=== PATIENT | male | born 1990 | race Caucasian/White ===

== ENCOUNTER 2019-05-29 18:57 | Emergency (ER) | payer MEDICAID, OTHER ==
[~2019-05-29] VITALS: Ht 172.7 cm; Wt 76.9 kg
[2019-05-29 19:24] VITALS: BP 141/78
[2019-05-29] MEDS ORDERED: ACET-2615 PO (20:34)
[2019-05-29] MEDS ORDERED: MELO-100 PO (20:34)
[2019-05-29] MEDS ORDERED: MAGN296S50 PO (20:34)
== END 2019-05-29 20:48 | disposition home or self-care (01) ==
LOC: ER 19:04
DX: K59.00 Constipation, unspecified (principal); R10.33 Periumbilical pain; F15.90 Other stimulant use, unspecified, uncomplicated; F11.90 Opioid use, unspecified, uncomplicated; Z79.899 Other long term (current) drug therapy
CPT/HCPCS: 99283

== ENCOUNTER 2019-10-29 19:03 | Emergency (ER) | payer MEDICAID ==
[~2019-10-29] VITALS: Ht 172.7 cm; Wt 81.0 kg
[~2019-10-29 19:03] MED LIST: MAGN296S70 PO; MELO-100 PO
[2019-10-29 19:05] VITALS: BP 119/90
[2019-10-29 19:40] LABS: BASOPHILS # (AUTO) 0.1 X10'3 (0-0.2); BASOPHILS % (AUTO) 0.6 % (0-1); EOSINOPHILS # (AUTO) 0.3 X10'3 (0-0.9); HEMOGLOBIN 14.5 g/dl (14.0-17.9); LYMPHOCYTES % (AUTO) 29.3 % (21-51); MEAN CORPUSCULAR HEMOGLOBIN 29.5 PG (27.0-31.0); MEAN CORPUSCULAR HGB CONC 34.4 g/dL (33.0-36.5); MEAN CORPUSCULAR VOLUME 85.6 FL (78-98); MEAN PLATELET VOLUME 7.3 FL (7.4-10.4); MONOCYTES # (AUTO) 0.9 X10'3 (0-0.9); MONOCYTES % (AUTO) 9.1 % (2-12); NEUTROPHILS # (AUTO) 5.9 X10'3 (1.8-7.7); PLATELET COUNT 390 X10'3 (140-440); RED BLOOD COUNT 4.91 X10'6 (4.70-6.10); RED CELL DISTRIBUTION WIDTH 13.5 % (11.5-14.5); WHITE BLOOD COUNT 10.2 X10'3 (4.5-11.0)
[2019-10-29 19:51] LABS: ALANINE AMINOTRANSFERASE 24 U/L (12-78); ALBUMIN 3.5 G/DL (3.4-5.0); ALBUMIN/GLOBULIN RATIO 0.7 (1.1-1.5); ALKALINE PHOSPHATASE 140 IU/L (46-116); ANION GAP 4 (8-16); ASPARTATE AMINO TRANSFERASE 26 U/L (10-37); BILIRUBIN,TOTAL 0.2 MG/DL (0.1-1.0); BLOOD UREA NITROGEN 14 MG/DL (7-18); BUN/CREATININE RATIO 12.8 (5.4-32.0); CALCIUM 9.6 MG/DL (8.5-10.1); CHLORIDE 103 MMOL/L (99-107); CREATININE 1.09 MG/DL (0.60-1.10); GLUCOSE 100 MG/DL (70-104); LIPASE 101 U/L (73-393); POTASSIUM 3.8 MMOL/L (3.5-5.1); SODIUM 138 MMOL/L (135-145); TOTAL CARBON DIOXIDE 30.9 MMOL/L (24-32); TOTAL PROTEIN 8.4 G/DL (6.4-8.2); eGFR 81 ML/MIN
== END 2019-10-29 21:19 | disposition left against medical advice (07) ==
LOC: ER 19:04
DX: R11.10 Vomiting, unspecified (principal); Z53.21 Procedure and treatment not carried out due to patient leaving prior to being seen by health care provider
CPT/HCPCS: 36415; 80053; 83690; 85025